=== PATIENT | male | born 1985 | race Caucasian/White ===

== ENCOUNTER → 2016-12-01 | Outpatient (CLI) | payer OTHER | END | disposition home or self-care (01) | LOC: CFH 13:33 | PROVIDERS: ATTEND Nurse Practitioner Family | DX: R59.1 Generalized enlarged lymph nodes (principal); K57.30 Diverticulosis of large intestine without perforation or abscess without bleeding | CPT/HCPCS: 74177; 76536; 82565; Q9967 ==

== ENCOUNTER → 2016-12-24 | Outpatient (CLI) | payer OTHER ==
[~2016-12-24] MED LIST: LEVO50TA5 PO; LOSA50TA6 PO
[2016-12-24 12:14] LABS: ASPARTATE AMINO TRANSFERASE 20 U/L (15-37); BLOOD UREA NITROGEN 14 mg/dL (7-18)
== END | disposition home or self-care (01) ==
LOC: STAR 11:05
PROVIDERS: ATTEND Surgery
DX: Z01.818 Encounter for other preprocedural examination (principal); R59.0 Localized enlarged lymph nodes
CPT/HCPCS: 36415; 80053

== ENCOUNTER 2016-12-28 07:05 | Day surgery (SDC) | payer OTHER ==
[2016-12-24 12:05] VITALS: BP 144/101
[~2016-12-28] VITALS: Ht 195.6 cm; Wt 133.0 kg
[~2016-12-28 07:05] MED LIST changes: +BACITRACIN 50,000 UNIT ONE; +BUPIVACAINE/PF-EPI 0.25% 1:200K ONE
[2016-12-28] MEDS ORDERED: LACTATED RINGERS 1,000 ML IV SCH (07:48)
[2016-12-28] MEDS ORDERED: LIDOCAINE 1%, 2ML SQ PRN (08:00)
[2016-12-28] MEDS ORDERED: CEFAZOLIN 1,000 MG ONE (08:53)
[2016-12-28] MEDS ORDERED: PROPOFOL 10 MG/ML, 20ML ONE (08:53)
[2016-12-28] MEDS ORDERED: ONDANSETRON 2MG/ML, 2ML ONE (08:53)
[2016-12-28] MEDS ORDERED: FENTANYL PF 100 MCG/2ML ONE ×3 (08:54→10:12)
[2016-12-28] MEDS ORDERED: ACETAMINOPHEN 325 MG TABLET PO PRN (09:30)
[2016-12-28] MEDS ORDERED: ONDANSETRON 2MG/ML, 2ML IVPush PRN (09:30)
[2016-12-28] MEDS ORDERED: hydrALAzine 20 MG/ML, 1ML IV PRN (09:30)
[2016-12-28] MEDS ORDERED: MEPERIDINE/PF 25MG/0.5ML IVPush PRN (09:30)
[2016-12-28] MEDS ORDERED: OXYcodone 5 MG/5 ML ORAL.SOL UDC PO PRN (09:30)
[2016-12-28] MEDS ORDERED: HYDROmorphone 1 MG/ML, 1ML IV PRN (09:30)
[2016-12-28] MEDS ORDERED: LABETALOL 5MG/ML, 20ML IV PRN (09:30)
[2016-12-28] MEDS ORDERED: BUPIVACAINE/PF-EPI 0.25% 1:200K INFIL ONE (09:35)
[2016-12-28] MEDS ORDERED: ACETAMINOPHEN 325 MG TABLET ONE (10:13)
[2016-12-28] MEDS ORDERED: OXYcodone 5 MG/5 ML ORAL.SOL UDC ONE (10:13)
[2016-12-28] MEDS: FENTANYL PF 100 MCG/2ML IV PRN ×2 (10:17→10:27)
== END 2016-12-28 12:10 | disposition home or self-care (01) ==
LOC: OUT 07:05
PROVIDERS: ATTEND Surgery
DX: R59.0 Localized enlarged lymph nodes (principal); I10 Essential (primary) hypertension; E03.9 Hypothyroidism, unspecified
CPT/HCPCS: 38500; 88307; 88341; 88342; J0690; J2405; J2704; J3010; J3490; J7120; G0461